=== PATIENT | male | born 1965 | race Caucasian/White ===

== ENCOUNTER 2022-06-27 15:13 | Emergency (ER) | payer MEDICAID, SELFPAY ==
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
[2022-06-27 15:26] VITALS: BP 114/76; PULSE 83; RESP 18; TEMP 36.7; O2SAT 97
== END 2022-06-27 15:29 | disposition left against medical advice (07) ==
LOC: ER 15:28
PROVIDERS: Emergency Provider Student in an Organized Health Care Education/Training Program
DX: Z53.21 Procedure and treatment not carried out due to patient leaving prior to being seen by health care provider (principal)